=== PATIENT | male | born 1965 | race Caucasian/White ===

== ENCOUNTER 2023-09-14 10:35 | Emergency (ER) | payer OTHER ==
[2023-09-14 10:50] VITALS: TEMP 98.8; BMI 48.8
[2023-09-14] MEDS ORDERED: LIDOCAINE 5% TOPICAL PATCH ONE (11:15)
[2023-09-14] MEDS ORDERED: ACETAMINOPHEN INJECTION 100 ML IVPB ONE (11:28)
[2023-09-14] MEDS: LIDOCAINE 5% TOPICAL PATCH TP ONE (11:30)
[2023-09-14] MEDS: ACETAMINOPHEN 1000 MG/100 ML BAG IVPB ONE (11:35)
[2023-09-14 12:38] LABS: ALBUMIN 4.7 g/dl (3.4-5.0); BILIRUBIN,TOTAL 0.7 mg/dl (0.2-1); CALCIUM 9.7 mg/dl (8.5-10.1); CREATININE 1.3 mg/dl (0.6-1.3); POTASSIUM 4.5 mmol/L (3.5-5.1); TOT PROT 6.8 g/dl (6.4-8.2)
[2023-09-14 12:44] LABS: HEMATOCRIT 51.2 % (35.4-49); HEMOGLOBIN 16.8 G/dL (11.7-16.9); MCH 28.9 pg (25.7-33.7); MCHC 32.7 g/dl (32.0-35.9); MEAN CELL VOLUME 88.4 fl (80-96); MEAN PLT VOLUME 8.6 fl (7.5-11.1); RBC 5.79 10^6/uL (4.00-5.60); RDW 14.6 % (11.9-15.9); WHITE BLOOD COUNT 8.8 10^3/uL (4.0-10.8)
[2023-09-14] MEDS ORDERED: ALPRAZolam 0.25 MG TABLET ONE (12:46)
[2023-09-14] MEDS: ALPRAZolam 1 MG TABLET PO PRN (12:50)
[2023-09-14] MEDS ORDERED: morphine SULFATE 4 MG/ML VIAL ONE (13:16)
[2023-09-14] MEDS: morphine CARPU-JECT 4 MG/1 ML DISP.SYRIN IVPUSH ONE (13:20)
[2023-09-14 13:53] VITALS: BP 126/78; PULSE 84; RESP 20
[2023-09-14 14:52] LABS: PLATELET ESTIMATE ADEQUATE
[2023-09-14] MEDS ORDERED: LIDOCAINE PATCH REMOVAL MC ONE (22:00)
== END 2023-09-14 14:30 | disposition home or self-care (01) ==
LOC: FER 10:35
PROC: 3E033NZ Introduction of Analgesics, Hypnotics, Sedatives into Peripheral Vein, Percutaneous Approach (ICD-10-PCS; principal; 2023-09-14)
PROC: 3E033NZ Introduction of Analgesics, Hypnotics, Sedatives into Peripheral Vein, Percutaneous Approach (ICD-10-PCS; 2023-09-14)
DX: S22.32XA Fracture of one rib, left side, initial encounter for closed fracture (principal); W18.39XA Other fall on same level, initial encounter
CPT/HCPCS: 36415; 71046-TC-FY; 71260-TC; 80053; 84484; 85027; 93005; 96374; 96375; 99285-25; J0131; Q9967